=== PATIENT | female | born 1950 | race Native Hawaiian/Other Pacific Islander ===

== ENCOUNTER 2017-05-16 11:30 | Day surgery (SDC) | payer MEDICARE ==
[2016-01-23 07:06] VITALS: BMI 26.6
[~2017-05-16 11:30] MED LIST: Lidocaine 1%/Epinephrine 1:100000 30 ml vial IJ STA
[2017-05-16 12:44] VITALS: RESP 18
[2017-05-16] MEDS ORDERED: Bupivacaine HCl 0.25% PF (10 ml) Inj ONE (13:43)
[2017-05-16] MEDS ORDERED: ceFAZolin IV 2 gm in Dextrose 0 GM/0 ML BAG IVPB ONE (13:44)
[2017-05-16] MEDS ORDERED: ceFAZolin IV 1 gm in Dextrose 1 GM/50 ML BAG IVPB ONE (13:59)
[2017-05-16 14:50] VITALS: BP 160/81; PULSE 69; TEMP 97; O2SAT 97
[2017-05-16] MEDS ORDERED: Oxycodone/Acetaminophen 5/325 mg Tab PO ONE (17:52)
--- NOTE | 2017-05-16 17:59 | PCM.SURG1 ---
Surgeon's Initial Post Op Note - Surgeon's Notes Surgeon: Rob Bookmobile Librarian: n/a Type of Anesthesia: IV Sedation, Local Pre-Operative Diagnosis: Sebacious cyst Operative Findings: see op note Post-Operative Diagnosis: Sebacious cyst Operation Performed: Excision of sebacious cyst Specimen/Specimens Removed: Sebacious cyst Estimated Blood Loss: EBL {In ML}: 5 Blood Products Given: N/A Drains Used: No Drains Post-Op Condition: Good Date of Surgery/Procedure: 05/16/17 Time of Surgery/Procedure: 13:50
--- NOTE | 2017-05-17 05:24 | OP ---
PROCEDURE DATE: 05/16/2017 PREOPERATIVE DIAGNOSIS: Sebaceous cyst of the left lower neck, 1 x 1 cm size. POSTOPERATIVE DIAGNOSIS: Sebaceous cyst of the left lower neck, 1 x 1 cm size. PROCEDURE: Excision of sebaceous cyst of left lower neck, 1 x 1 cm size. SURGEON: Raleigh Rivas MD. FISH BUTCHER: Ritesh Wagner, PGY-4 resident TYPE OF ANESTHESIA: Local. ESTIMATED BLOOD LOSS: Around 2 mL. DRAIN: None. SPECIMEN: Sebaceous cyst was sent for pathology. COMPLICATIONS: None. INTRAOPERATIVE FINDINGS: Patient had approximately 1 x 1 cm sebaceous cyst of the left lower neck. DESCRIPTION OF PROCEDURE: On intraoperative steps, this is a 66-year-old female who was diagnosed with a sebaceous cyst of the left lower neck. The patient was consented for excision of sebaceous cyst, brought to the OR, placed supine on the operating table. After monitored anesthesia, the left neck was prepped and draped. Local anesthesia was injected. Elliptical incision was made after incising skin and subcutaneous tissue. The sebaceous cyst was completely excised and it was sent off the table for pathology. The wound was irrigated and the wound was closed in 2 layers. The subcu with 2-0 Vicryl and skin with 4-0 Monocryl and dry sterile dressing was applied. The patient tolerated the procedure well. Count of the instrument and gauze was correct. There was no apparent complication. Raleigh Rivas MD
== END 2017-05-16 14:51 | disposition home or self-care (01) ==
LOC: C.SDS 11:30
PROVIDERS: ATTEND Surgery Surgical Critical Care
DX: L72.3 Sebaceous cyst (principal); L72.0 Epidermal cyst